=== PATIENT | male | born 1940 | race Caucasian/White ===

== ENCOUNTER 2016-06-30 15:45 | Emergency (ER) | payer MEDICARE ==
[~2016-06-30] VITALS: Ht 172.7 cm; Wt 76.0 kg
[~2016-06-30 15:45] MED LIST: COZA50TA PO; DILT180C56 PO; IPRA17I INH; KONS520C PO; MAXZ25 PO; VITA100017 PO; VITA10002 PO
[2016-06-30 15:58] VITALS: BP 145/84; PULSE 94; RESP 16; TEMP 98.2; O2SAT 97
[2016-06-30] MEDS ORDERED: OMEP20TA PO (16:14)
[2016-06-30] MEDS ORDERED: CYAN100025 SL (16:14)
[2016-06-30] MEDS ORDERED: IPRA17I INH (16:14)
[2016-06-30] MEDS ORDERED: LOSA50TA PO (16:14)
[2016-06-30] MEDS ORDERED: META0.52 PO (16:14)
[2016-06-30] MEDS ORDERED: VITA10007 PO (16:14)
[2016-06-30] MEDS ORDERED: DILT180C56 PO (16:14)
--- NOTE | 2016-06-30 17:36 | PD ---
HPI Chief Complaint: Foreign Body Time Seen by Provider: 16:15 Travel History International Travel<30 days: No Contact w/Intl Traveler<30days: No Traveled to known affect area: No History of Present Illness HPI Patient is a 75-year-old male who presents emergency department for evaluation of right toe possible foreign body. Patient states that he was in the garden yesterday when a flood light broke and he thinks he has a piece of glass in his foot. His states that when she was trying to suspect his toe he had a lot of pain so she brought him in to be evaluated. PFSH Past Medical History Arthritis: Yes Asthma: Yes ( YOUTH/ RESOLVED) Anxiety: No Cancer: Yes (LEFT LUNG) Cardiovascular Problems: Yes (htn on meds) Chemotherapy: No Diminished Hearing: No Endocrine: No Gastrointestinal Disorders: No Genitourinary: No Hypertension: Yes Immune Disorder: No Implanted Vascular Access Dvce: No Musculoskeletal: Yes Neurologic: No Psychiatric: Yes (CLAUSTRAPHOBIA) Reproductive: No Respiratory: Yes Radiation Therapy: No Tetanus Vaccination: Unknown Past Surgical History Abdominal Surgery: Yes (RT ING. HERNIA REP.) Genitourinary Surgery: Yes (VASECTOMY) Oral Surgery: Yes (T & A) Pacemaker: No Social History Alcohol Use: Yes (OCCAS) Tobacco Use: No Substance Use: No Allergies-Medications (Allergen,Severity, Reaction): Coded Allergies: PEANUTS (Unverified Allergy, Severe, HIVES, 06/30/16) Shrimp (Unverified Allergy, Severe, HIVES, 06/30/16) Prednisone (Verified Allergy, Intermediate, rash on face/flushed, 06/30/16) Penicillin (Verified Allergy, Mild, 06/30/16) Uncoded Allergies: COLD TEMPERATURE (Adverse Reaction, Intermediate, RASH,HIVES, 06/30/16) PATIENT BREAKS OUT WHEN ANYTHING COLD IN PLACED ON HIM. ALSO GETS HIVES FROM COLD TEMPERATURES.. Reported Meds & Prescriptions Reported Meds & Active Scripts Active Reported Metamucil (Psyllium) 520 Mg Cap 1 Cap PO HS Losartan (Losartan Potassium) 50 Mg Tab 50 Mg PO DAILY Diltiazem CD 24 HR 180 Mg Caper 180 Mg PO DAILY B-12 (Cyanocobalamin) 1,000 Mcg Subl 1,000 Mcg SL DAILY Atrovent HFA 12.9 GM Inh (Ipratropium [place]) 17 Mcg/Act Aer 2 Puff INH TID Vitamin C (Ascorbic Acid) 1,000 Mg Tab 1,000 Mg PO DAILY Omeprazole 20 Mg Tab 20 Mg PO DAILY Review of Systems Except as stated in HPI: all other systems reviewed are Neg Musculoskeletal: Positive: Pain Physical Exam Narrative GENERAL: Well-nourished, well-developed patient. SKIN: Warm and dry. 2 mm abrasion noted to the plantar aspect of the right first toe pad. No erythema, induration, swelling noted. No obvious foreign body noted. HEAD: Normocephalic. EYES: No scleral icterus. No injection or drainage. NECK: Supple, trachea midline. No JVD or lymphadenopathy. CARDIOVASCULAR: Regular rate and rhythm without murmurs, gallops, or rubs. RESPIRATORY: Breath sounds equal bilaterally. No accessory muscle use. GASTROINTESTINAL: Abdomen soft, non-tender, nondistended. MUSCULOSKELETAL: No cyanosis, or edema. BACK: Nontender without obvious deformity. No CVA tenderness. Data Data Last Documented VS Vital Signs Date Time Temp Pulse Resp B/P Pulse Ox O2 Delivery O2 Flow Rate FiO2 06/30/16 15:58 98.2 94 16 145/84 97 Orders Toe (Min 2vws) (06/30/16 ) Tetanus/Diphtheria Tox Adult (Tetanus/Di (06/30/16 17:45) MDM Medical Decision Making Medical Screen Exam Complete: Yes Emergency Medical Condition: Yes Interpretation(s) Vital Signs Date Time Temp Pulse Resp B/P Pulse Ox O2 Delivery O2 Flow Rate FiO2 06/30/16 15:58 98.2 94 16 145/84 97 Differential Diagnosis Abrasion versus puncture wound versus retained foreign body versus other Narrative Course Patient is a 75-year-old male who presented for evaluation of possible foreign body to the right first toe. On exam it does not appear to be any retained foreign body. Less than 2 mm abrasion noted to the plantar aspect of the first toe. requesting imaging. Imaging ordered and pending. Patient states tetanus vaccine is up-to-date now. Imaging was negative for acute fracture or foreign body. Does show osteoarthritis. Patient was encouraged to keep the abrasion clean and dry, cover with a Band-Aid until well healed. He was educated on signs and symptoms of infection and need to return to emergency department for any new or worsening symptoms. Patient verbalized understanding of instructions. Patient is stable for discharge. Diagnosis Primary Impression: Abrasion of toe Qualified Code: S90.414A - Abrasion of toe, right, initial encounter Referrals: Primary Care Physician Patient Instructions: Abrasion (ED), General Instructions Additional Instructions: Follow-up with your primary doctor Return to emergency department for any new or worsening symptoms Keep abrasion clean and dry, cover with Band-Aid Med/Other Pt SpecificInfo: No Change to Meds Disposition: 01 DISCHARGE HOME Condition: Stable Kelly Rodriguez Jun 30, 2016 17:35
[2016-06-30] MEDS ORDERED: TETANUS/DIPHTHERIA TOXOID ADULT 0.5 ML VIAL IM ONE (17:45)
--- NOTE | 2016-06-30 17:56 | RADHPO ---
EXAM DATE/TIME: 06/30/2016 17:12 [facility] COMPARISON: No previous studies available for comparison. INDICATIONS : Puncture wound right big toe from glass MEDICAL HISTORY : Carcinoma, lung. SURGICAL HISTORY : None. ENCOUNTER: Initial ACUITY: 1 day PAIN SCORE: 10/10 LOCATION: Right toe FINDINGS: Examination of the first digit of the right foot demonstrates moderate osteoarthritis of the great to e. No radiopaque foreign body and no fracture or dislocation. CONCLUSION: 1. 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 No acute fracture or dislocation. Mike Danielle MD on June 30, 2016 at 17:52 Board Certified Radiologist. This report was verified electronically.
== END 2016-06-30 18:19 | disposition home or self-care (01) ==
LOC: PHEFT 15:45
DX: S90.414A Abrasion, right lesser toe(s), initial encounter (principal); J45.909 Unspecified asthma, uncomplicated; I10 Essential (primary) hypertension; W25.XXXA Contact with sharp glass, initial encounter; Y93.H2 Activity, gardening and landscaping; Y92.007 Garden or yard of unspecified non-institutional (private) residence as the place of occurrence of the external cause; Y99.8 Other external cause status
CPT/HCPCS: 73660; 99283

== ENCOUNTER → 2016-09-13 | Outpatient (CLI) | payer MEDICARE ==
[~2016-09-13] MED LIST changes: -COZA50TA PO; +CYAN100025 SL; -KONS520C PO; +LOSA50TA PO; -MAXZ25 PO; +META0.52 PO; +OMEP20TA PO; -VITA100017 PO; -VITA10002 PO; +VITA10007 PO
--- NOTE | 2016-09-13 11:54 | RADRPT ---
EXAM DATE/TIME: 09/13/2016 00:00 [facility] COMPARISON: No previous studies available for comparison. INDICATIONS : Dysphagia FLUORO TIME: 1.4 minutes IMAGE COUNT: 0 CONTRAST: Dose as prescribed by speech pathologist. MEDICAL HISTORY : None. SURGICAL HISTORY : None. ENCOUNTER: Initial ACUITY: 1 year PAIN SCORE: 0/10 LOCATION: Bilateral esophagus FINDINGS: A modified barium swallow was performed with speech pathology. Patient was given a variety of liquids to swallow. For a full detailed report, see report by the speech pathologist. CONCLUSION: Please refer to modified speech pathology report for complete discussion. Erick Rodríguez MD on September 13, 2016 at 11:52 Board Certified Radiologist. This report was verified electronically.
== END ==
LOC: HRAD 10:54
PROVIDERS: ATTEND Internal Medicine Gastroenterology
DX: R13.10 Dysphagia, unspecified (principal)
CPT/HCPCS: 74230; 92611; G8996; G8997; G8998

== ENCOUNTER 2017-07-05 20:14 | Inpatient (IN) | payer MEDICARE ==
[~2017-07-05] VITALS: Ht 172.7 cm; Wt 67.7 kg
[~2017-07-05 20:14] MED LIST changes: -OMEP20TA PO; +OMEP20TA93 PO
[2017-07-05 20:15] VITALS: BP 144/67; PULSE 92; RESP 20; TEMP 97.8; O2SAT 96
[2017-07-05] MEDS ORDERED: DILT240C44 PO (20:45)
[2017-07-05] MEDS ORDERED: TYLE325T PO (20:45)
[2017-07-05] MEDS ORDERED: VENTAER INH (20:45)
[2017-07-05] MEDS ORDERED: FURO1TAB62 PO (20:45)
[2017-07-05] MEDS ORDERED: SODIUM CHLORIDE 0.9% FLUSH 10 ML FLUSH IVF PRN (21:00)
--- NOTE | 2017-07-05 21:01 | PD ---
HPI Chief Complaint: Respiratory Symptoms Time Seen by Provider: 20:50 Travel History International Travel<30 days: No Contact w/Intl Traveler<30days: No Traveled to known affect area: No History of Present Illness HPI 76-year-old male presents to the emergency department by private transportation in the care of his family for evaluation of shortness of breath and persistent pneumonia. Patient has history of dysphagia and more recently has gone through 2 courses of oral antibiotic as an outpatient azithromycin and doxycycline for pneumonia. 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 Patient has had progressive dyspnea on exertion and orthopnea. Patient underwent CT noncontrast of the chest yesterday and today was called and notified that he still had a right-sided pneumonia and was encouraged by his primary care provider to come to the hospital for admission for failed outpatient pneumonia therapy and for evaluation of other causes of his shortness of breath. Son reports that they have a pulse oximeter at home and at rest resting semi-supine O2 saturations were 88% and with minimal exertion O2 saturation stayed 88%. Patient has never been on supplemental oxygen in the past. PFSH Past Medical History Narrative Medical Arthritis asthma dysphagia lung cancer malignant melanoma in situ COPD hypertension dyslipidemia chronic kidney disease stage III colonoscopy tonsillectomy herniorrhaphy vasectomy left lower lobectomy Arthritis: Yes Asthma: Yes ( YOUTH/ RESOLVED) Anxiety: No Cancer: Yes (LEFT LUNG) Cardiovascular Problems: Yes (HTN) Chemotherapy: No COPD: Yes Diminished Hearing: No Endocrine: No Gastrointestinal Disorders: No Genitourinary: No Hypertension: Yes Immune Disorder: No Implanted Vascular Access Dvce: No Medical other: Yes ("COLD URTICARIA" WHEN IN CONTACT WITH ANYTHING COLD OR COLD WEATHER--HIVES) Musculoskeletal: Yes Neurologic: No Psychiatric: Yes (CLAUSTRAPHOBIA) Reproductive: No Respiratory: Yes (COPD, Lung cancer with lobectomy of LLL, ) Radiation Therapy: No Tetanus Vaccination: < 5 Years Influenza Vaccination: Yes Past Surgical History Abdominal Surgery: Yes (RT ING. HERNIA REP.) Body Medical Devices: "RIVETS" L INGUINAL HERNIA -- SHOWS ON X-RAY Genitourinary Surgery: Yes (VASECTOMY) Joint Replacement: No Oral Surgery: Yes (T & A) Pacemaker: No Thoracic Surgery: Yes (LOBECTOMY LOWER L LOBE 2010) Other Surgery: Yes Social History Alcohol Use: Yes (OCCAS) Tobacco Use: No Substance Use: No Allergies-Medications (Allergen,Severity, Reaction): Coded Allergies: peanut (Unverified Allergy, Severe, HIVES, 01/08/17) shrimp (Unverified Allergy, Severe, HIVES, 01/08/17) prednisone (Unverified Allergy, Intermediate, rash on face/flushed, ) penicillin G (Unverified Allergy, Mild, 01/08/17) Uncoded Allergies: COLD TEMPERATURE (Adverse Reaction, Intermediate, RASH,HIVES, 06/30/16) PATIENT BREAKS OUT WHEN ANYTHING COLD IN PLACED ON HIM. ALSO GETS HIVES FROM COLD TEMPERATURES.. Reported Meds & Prescriptions Reported Meds & Active Scripts Active Reported Tylenol (Acetaminophen) 325 Mg Tab 325 Mg PO Q4H PRN Diltiazem CD 24 HR 240 Mg Caper 180 Mg PO DAILY Lasix (Furosemide) 20 Mg Tab 20 Mg PO DAILY Metamucil (Psyllium) 520 Mg Cap 1 Cap PO HS Losartan (Losartan Potassium) 50 Mg Tab 50 Mg PO DAILY B-12 (Cyanocobalamin) 1,000 Mcg Subl 1,000 Mcg SL DAILY Atrovent HFA 12.9 GM Inh (Ipratropium [place]) 17 Mcg/Act Aer 2 Puff INH TID Omeprazole 20 Mg Tab 20 Mg PO DAILY Review of Systems Except as stated in HPI: all other systems reviewed are Neg General / Constitutional: No: Fever, Chills HENT: No: Congestion Cardiovascular: Positive: Dyspnea on exertion, Edema (ankle pedal), No: Chest Pain or Discomfort Respiratory: Positive: Cough, Shortness of Breath Gastrointestinal: No: Nausea, Vomiting, Diarrhea, Abdominal Pain Genitourinary: No: Dysuria Musculoskeletal: Positive: Edema, No: Myalgias, Arthralgias Skin: No Rash Neurologic: No: Weakness Psychiatric: No: Anxiety Hematologic/Lymphatic: No: Lymph Node Enlargement Physical Exam Narrative GENERAL: Well-developed elderly male in no acute distress or respiratory distress. SKIN: Warm and dry. HEAD: Normocephalic. EYES: No scleral icterus. No injection or drainage. NECK: Supple, trachea midline. No JVD or lymphadenopathy. CARDIOVASCULAR: Regular rate and rhythm without murmurs, gallops, or rubs. RESPIRATORY: Breath sounds equal bilaterally except for a few crackles to left base and diminished right base. No accessory muscle use. GASTROINTESTINAL: Abdomen soft, non-tender, nondistended. MUSCULOSKELETAL: No cyanosis, right greater than left lower leg edema and bilateral pedal edema. BACK: Nontender without obvious deformity. No CVA tenderness. Data Data Last Documented VS Vital Signs Date Time Temp Pulse Resp B/P (MAP) Pulse Ox O2 Delivery O2 Flow Rate FiO2 07/05/17 23:12 87 120/63 (82) 98 Room Air 07/05/17 20:15 97.8 20 Orders Orders Complete Blood Count With Diff (07/05/17 20:50) Comprehensive Metabolic Panel (07/05/17 20:50) B-Type Natriuretic Peptide (07/05/17 20:50) Act Partial Throm Time (Ptt) (07/05/17 20:50) Prothrombin Time / Inr (Pt) (07/05/17 20:50) Magnesium (Mg) (07/05/17 20:50) Ckmb (Isoenzyme) Profile (07/05/17 20:50) Troponin I (07/05/17 20:50) Urinalysis - C+S If Indicated (07/05/17 20:50) Blood Culture (07/05/17 20:50) Iv Access Insert/Monitor (07/05/17 20:50) Electrocardiogram (07/05/17 20:50) Ecg Monitoring (07/05/17 20:50) Oximetry (07/05/17 20:50) Oxygen Administration (07/05/17 20:50) Chest, Single Ap (07/05/17 20:50) Sodium Chloride 0.9% Flush (Ns Flush) (07/05/17 21:00) CKMB (07/05/17 20:40) CKMB% (07/05/17 20:40) Furosemide Inj (Lasix Inj) (07/05/17 23:00) Aztreonam Inj (Azactam Inj) (07/05/17 23:00) Lactic Acid (07/05/17 22:54) Admit Order (Ed Use Only) (07/05/17 ) [employer] Roofer / Telemetry MICHAEL.Q8H (07/05/17 23:12) Activity Oob With Assistance (07/05/17 23:12) Notify Dr: Other (07/05/17 23:12) Labs Laboratory Tests Test 07/05/17 20:40 White Blood Count 10.2 TH/MM3 Red Blood Count 4.67 MIL/MM3 Hemoglobin 14.5 GM/DL Hematocrit 43.9 % Mean Corpuscular Volume 93.9 FL Mean Corpuscular Hemoglobin 31.0 PG Mean Corpuscular Hemoglobin Concent 33.1 % Red Cell Distribution Width 15.1 % Platelet Count 221 TH/MM3 Mean Platelet Volume 8.2 FL Neutrophils (%) (Auto) 75.6 % Lymphocytes (%) (Auto) 14.1 % Monocytes (%) (Auto) 9.1 % Eosinophils (%) (Auto) 0.8 % Basophils (%) (Auto) 0.4 % Neutrophils # (Auto) 7.7 TH/MM3 Lymphocytes # (Auto) 1.4 TH/MM3 Monocytes # (Auto) 0.9 TH/MM3 Eosinophils # (Auto) 0.1 TH/MM3 Basophils # (Auto) 0.0 TH/MM3 CBC Comment DIFF FINAL Differential Comment Prothrombin Time 11.7 SEC Prothromb Time International Ratio 1.2 RATIO Activated Partial Thromboplast Time 27.3 SEC Blood Urea Nitrogen 34 MG/DL Creatinine 1.63 MG/DL Random Glucose 72 MG/DL Total Protein 7.0 GM/DL Albumin 3.2 GM/DL Calcium Level 9.0 MG/DL Magnesium Level 2.1 MG/DL Alkaline Phosphatase 100 U/L Aspartate Amino Transf (AST/SGOT) 65 U/L Alanine Aminotransferase (ALT/SGPT) 48 U/L Total Bilirubin 0.9 MG/DL Sodium Level 139 MEQ/L Potassium Level 4.6 MEQ/L Chloride Level 103 MEQ/L Carbon Dioxide Level 26.8 MEQ/L Anion Gap 9 MEQ/L Estimat Glomerular Filtration Rate 41 ML/MIN Total Creatine Kinase 904 U/L Creatine Kinase MB 13.7 NG/ML Creatine Kinase MB % 1.5 % Troponin I 0.17 NG/ML B-Type Natriuretic Peptide 806 PG/ML MDM Medical Decision Making Medical Screen Exam Complete: Yes Emergency Medical Condition: Yes Medical Record Reviewed: Yes Interpretation(s) Last Impressions Chest X-Ray 07/05/172049 Signed Impressions: Service Date/Time: Wednesday, July 05, 2017 21:04 - CONCLUSION: There is infiltrate and effusion the right lower lung suggestive of pneumonia. Girish Bennett MD CBC & BMP Diagram 07/05/17 20:40 Total Protein 7.0, Albumin 3.2 L, Calcium Level 9.0, Magnesium Level 2.1, Alkaline Phosphatase 100, Aspartate Amino Transf (AST/SGOT) 65 H, Alanine Aminotransferase (ALT/SGPT) 48, Total Bilirubin 0.9 Vital Signs Date Time Temp Pulse Resp B/P (MAP) Pulse Ox O2 Delivery O2 Flow Rate FiO2 07/05/17 21:18 98 Room Air 07/05/17 21:12 97 Room Air 07/05/17 21:12 97 Room Air 07/05/17 20:15 97.8 92 20 144/67 (92) 96 Room Air Differential Diagnosis Dyspnea CHF pneumonia PE ACS TX Narrative Course Patient placed on director cardiac IV access obtained specimens collected and sent for resulting; medical record reviewed EKG shows accelerated junctional rhythm rate 88 with right bundle branch block no acute ST elevation Chest x-ray shows right lower lobe infiltrate effusion and vascular congestion Total white cell count is normal with metabolic panel showing renal insufficiency Diagnosis Primary Impression: Pneumonia Qualified Codes: J18.1 - Lobar pneumonia, unspecified organism Additional Impressions: Elevated troponin I level ROSALIE (acute kidney injury) CHF (congestive heart failure) Yamini Macias MD Jul 05, 2017 21:01
[2017-07-05 21:12] VITALS: O2SAT 97
--- NOTE | 2017-07-05 21:28 | RADRPT ---
EXAM DATE/TIME: 07/05/2017 21:04 [facility] COMPARISON: No previous studies available for comparison. INDICATIONS : Shortness of breath. MEDICAL HISTORY : Carcinoma, left lung. Pneumonia. SURGICAL HISTORY : Left lower Lobectomy. ENCOUNTER: Initial ACUITY: 4 - 6 days PAIN SCORE: 0/10 LOCATION: Bilateral chest FINDINGS: There is infiltrate and effusion in the right lower lung. There is some platelike atelectasis versus scarring in the left lung base. Otherwise the rest of the left lung is clear. The heart size is mildl y enlarged. No overt pulmonary edema. The bony structures are grossly intact. CONCLUSION: There is infiltrate and effusion the right lower lung suggestive of pneumonia. Girish Bennett MD on July 05, 2017 at 21:25 Board Certified Radiologist. This report was verified electronically.
[2017-07-05 21:31] LABS: AUTOMATED NEUTROPHIL # 7.7 TH/MM3 (1.8-7.7); BASOPHIL % 0.4 % (0.0-2.0); EOSINOPHIL # 0.1 TH/MM3 (0-0.4); EOSINOPHIL % 0.8 % (0.0-4.0); HEMATOCRIT 43.9 % (39.0-51.0); HEMOGLOBIN 14.5 GM/DL (13.0-17.0); LYMPH % 14.1 % (9.0-44.0); LYMPHOCYTE # 1.4 TH/MM3 (1.0-4.8); MEAN CELL VOLUME 93.9 FL (80.0-100.0); MEAN CORPUSCULAR HGB CONC 33.1 % (32.0-36.0); MEAN PLATELET VOLUME 8.2 FL (7.0-11.0); MONO % 9.1 % (0.0-8.0); MONOCYTE # 0.9 TH/MM3 (0-0.9); NEUT % 75.6 % (16.0-70.0); PLATELET COUNT 221 TH/MM3 (150-450); RED BLOOD COUNT 4.67 MIL/MM3 (4.50-5.90); RED CELL DISTRIBUTION WIDTH 15.1 % (11.6-17.2); WHITE BLOOD COUNT 10.2 TH/MM3 (4.0-11.0)
[2017-07-05 21:32] LABS: INTERNATIONAL NORMALIZED RATIO 1.2 RATIO; PROTHROMBIN TIME - PATIENT 11.7 SEC (9.8-11.6)
[2017-07-05 21:47] LABS: ALBUMIN 3.2 GM/DL (3.4-5.0); AST (GOT) 65 U/L (15-37); BICARBONATE 26.8 MEQ/L (21.0-32.0); BLOOD UREA NITROGEN 34 MG/DL (7-18); CHLORIDE 103 MEQ/L (98-107); CREATININE 1.63 MG/DL (0.60-1.30); GLOMERULAR FILTRATION RATE 41 ML/MIN (>89); GLUCOSE,RANDOM 72 MG/DL (74-106); MAGNESIUM 2.1 MG/DL (1.5-2.5); SODIUM (NA) 139 MEQ/L (136-145)
[2017-07-05 21:51] LABS: ALKALINE PHOSPHATASE 100 U/L (45-117); ALT (GPT) 48 U/L (12-78); TOTAL BILIRUBIN ADULT 0.9 MG/DL (0.2-1.0); TROPONIN I 0.17 NG/ML (0.02-0.05)
[2017-07-05] MEDS ORDERED: FUROSEMIDE 40 MG/4 ML VIAL IV PUSH ONE (23:00)
[2017-07-05] MEDS ORDERED: AZTREONAM INJ 2,000 MG in SODIUM CHLORIDE 0.9% INJ 100 ML IV ONE (23:00)
[2017-07-05 23:12] VITALS: BP 120/63; PULSE 87; O2SAT 98
[2017-07-05 23:30] LABS: BILIRUBIN, URINE NEG (NEG); BLOOD, URINE NEG (NEG); GLUCOSE,URINE NEG (NEG); KETONE, URINE NEG (NEG); MUCUS URINE FEW /lpf (OCC); NITRITE,URINE NEG (NEG); URINE COLOR YELLOW (YELLW/STRAW); URINE LEUKOCYTE ESTERASE NEG (NEG)
[2017-07-05] MEDS ORDERED: Vancomycin Consult Pharmacy 1 EA OTHER SCH (23:30)
[2017-07-06] VITALS (9 sets, daily range): BP systolic 110–131; BP diastolic 55–68; PULSE 88–96; RESP 16–18; TEMP 97.4–97.8; O2SAT 93–98
[2017-07-06] MEDS ORDERED: VANCOMYCIN INJ 1,750 MG in SODIUM CHLORID 0.9% 500 ML INJ 500 ML IV ONE (00:19)
[2017-07-06] MEDS: ENOXAPARIN SODIUM 40 MG/0.4 ML SYRINGE SQ SCH (00:20)
[2017-07-06] MEDS: AZTREONAM INJ 2,000 MG in SODIUM CHLORIDE 0.9% INJ 100 ML IV SCH ×2 (08:50→16:43)
[2017-07-06 08:54] LABS: AUTOMATED NEUTROPHIL # 4.5 TH/MM3 (1.8-7.7); BASOPHIL % 0.6 % (0.0-2.0); EOSINOPHIL # 0.1 TH/MM3 (0-0.4); EOSINOPHIL % 1.1 % (0.0-4.0); HEMATOCRIT 39.9 % (39.0-51.0); HEMOGLOBIN 13.5 GM/DL (13.0-17.0); LYMPH % 18.5 % (9.0-44.0); LYMPHOCYTE # 1.2 TH/MM3 (1.0-4.8); MEAN CELL VOLUME 93.2 FL (80.0-100.0); MEAN CORPUSCULAR HEMOGLOBIN 31.4 PG (27.0-34.0); MEAN CORPUSCULAR HGB CONC 33.7 % (32.0-36.0); MEAN PLATELET VOLUME 8.1 FL (7.0-11.0); MONO % 9.3 % (0.0-8.0); MONOCYTE # 0.6 TH/MM3 (0-0.9); NEUT % 70.5 % (16.0-70.0); PLATELET COUNT 189 TH/MM3 (150-450); RED BLOOD COUNT 4.28 MIL/MM3 (4.50-5.90); RED CELL DISTRIBUTION WIDTH 14.8 % (11.6-17.2); WHITE BLOOD COUNT 6.4 TH/MM3 (4.0-11.0)
[2017-07-06 09:11] LABS: BICARBONATE 27.5 MEQ/L (21.0-32.0); CALCIUM 8.7 MG/DL (8.5-10.1); CREATININE 1.5 MG/DL (0.60-1.30)
[2017-07-06 09:15] LABS: TROPONIN I 0.21 NG/ML (0.02-0.05)
--- NOTE | 2017-07-06 10:48 | HHI.HP ---
HPI Service [facility] Hospitalists Primary Care Physician Karley Garcia MD Admission Diagnosis possible pna Chief Complaint: possible pna Travel History International Travel<30 Days: No Contact w/Intl Traveler <30 Da: No Traveled to Known Affected Are: No History of Present Illness Pt is 76 yo with hx lung ca sp left lung resection, copd, chronic dysphagia. Pt says he has had swallowing problems for about 3 yrs and was evaluated in [place], follows with ST outpt, and even tried a TENS unit for a yr. Uses modified diet. has been fatigued and more sob. recently he reports to courses of abx to include most recently completing doxycycline this week for pneumonia. Pt has had more edema of legs and seen by cardiology in May who felt the heart was compensated and pt had echo and vasquez in 01/10. They suggested pulmonary eval. Seen by pcp. CT chest done 07/03 and showed right lung consolidation and mod right pleural effusion and small left effusion. At [place] for his dysphagia, pt had esophageal manometry showed incomplete lower esophageal sphincter relaxation and occasional areas of poor peristalsis. mod barium swallow showed moderate oropharyngeal dysphagia with penetration but no aspiration. These reports were in April and he had never had any evidence of aspiration at that time. Now pt seems to have some coughing here with eating his breakfast. Pt was given iv lasix in ED last night for edema which improved the swelling. lovell was placed. given iv abx as well. Review of Systems Other sob fatigue swelling of legs. Past Family Social History Past Medical History dysphagia. s/p tens unit x [address] yr[address] outpt lexiscan 01/10...negative for ischemia 2d echo 01/10..ef 60-65% ckd 4 gfr 21..cr 1.4-1.6 cad... copd. 2014 pft...old... hx pna gerd hx lung ca. s/p left lung resection. mediastinal ln htn hyperlipidemia OA Reported Medications Tylenol (Acetaminophen) 325 Mg Tab 325 Mg PO Q4H PRN Diltiazem CD 180 Mg PO DAILY Lasix (Furosemide) 20 Mg Tab 20 Mg PO DAILY Metamucil (Psyllium) 520 Mg Cap 1 Cap PO HS Losartan (Losartan Potassium) 50 Mg Tab 50 Mg PO DAILY B-12 (Cyanocobalamin) 1,000 Mcg Subl 1,000 Mcg SL DAILY Atrovent HFA 12.9 GM Inh (Ipratropium Mineral) 17 Mcg/Act Aer 2 Puff INH TID Omeprazole 20 Mg Tab 20 Mg PO DAILY Allergies: Coded Allergies: peanut (Unverified Allergy, Severe, HIVES, 01/08/17) shrimp (Unverified Allergy, Severe, HIVES, 01/08/17) prednisone (Unverified Allergy, Intermediate, rash on face/flushed, ) penicillin G (Unverified Allergy, Mild, 01/08/17) Uncoded Allergies: COLD TEMPERATURE (Adverse Reaction, Intermediate, RASH,HIVES, 06/30/16) PATIENT BREAKS OUT WHEN ANYTHING COLD IN PLACED ON HIM. ALSO GETS HIVES FROM COLD TEMPERATURES.. Family History nc Social History no etoh/tob Physical Exam Vital Signs heart reg lung basilar crackles abd s/nt ext no edema Vital Signs Date Time Temp Pulse Resp B/P (MAP) Pulse Ox O2 Delivery O2 Flow Rate FiO2 07/06/17 08:00 97.6 90 18 116/55 (75) 93 07/06/17 04:00 89 07/06/17 03:58 97.7 89 16 126/58 (80) 97 07/06/17 01:30 97.7 94 18 131/68 (89) 96 07/05/17 23:12 87 120/63 (82) 98 Room Air 07/05/17 21:18 98 Room Air 07/05/17 21:12 97 Room Air 07/05/17 21:12 97 Room Air 07/05/17 20:15 97.8 92 20 144/67 (92) 96 Room Air Laboratory Laboratory Tests Test 07/05/17 20:40 07/05/17 22:31 07/05/17 23:08 07/06/17 08:28 White Blood Count 10.2 6.4 Red Blood Count 4.67 4.28 Hemoglobin 14.5 13.5 Hematocrit 43.9 39.9 Mean Corpuscular Volume 93.9 93.2 Mean Corpuscular Hemoglobin 31.0 31.4 Mean Corpuscular Hemoglobin Concent 33.1 33.7 Red Cell Distribution Width 15.1 14.8 Platelet Count 221 189 Mean Platelet Volume 8.2 8.1 Neutrophils (%) (Auto) 75.6 70.5 Lymphocytes (%) (Auto) 14.1 18.5 Monocytes (%) (Auto) 9.1 9.3 Eosinophils (%) (Auto) 0.8 1.1 Basophils (%) (Auto) 0.4 0.6 Neutrophils # (Auto) 7.7 4.5 Lymphocytes # (Auto) 1.4 1.2 Monocytes # (Auto) 0.9 0.6 Eosinophils # (Auto) 0.1 0.1 Basophils # (Auto) 0.0 0.0 CBC Comment DIFF FINAL DIFF FINAL Differential Comment Prothrombin Time 11.7 Prothromb Time International Ratio 1.2 Activated Partial Thromboplast Time 27.3 Blood Urea Nitrogen 34 31 Creatinine 1.63 1.50 Random Glucose 72 75 Total Protein 7.0 Albumin 3.2 Calcium Level 9.0 8.7 Magnesium Level 2.1 Alkaline Phosphatase 100 Aspartate Amino Transf (AST/SGOT) 65 Alanine Aminotransferase (ALT/SGPT) 48 Total Bilirubin 0.9 Sodium Level 139 142 Potassium Level 4.6 4.1 Chloride Level 103 106 Carbon Dioxide Level 26.8 27.5 Anion Gap 9 9 Estimat Glomerular Filtration Rate 41 45 Total Creatine Kinase 904 674 Creatine Kinase MB 13.7 11.2 Creatine Kinase MB % 1.5 1.7 Troponin I 0.17 0.21 B-Type Natriuretic Peptide 806 1014 Urine Color YELLOW Urine Turbidity CLEAR Urine pH 6.0 Urine Specific [place] 1.011 Urine Protein TRACE Urine Glucose (UA) NEG Urine Ketones NEG Urine Occult Blood NEG Urine Nitrite NEG Urine Bilirubin NEG Urine Urobilinogen LESS THAN 2.0 Urine Leukocyte Esterase NEG Urine RBC LESS THAN 1 Urine WBC 1 Urine Mucus FEW Microscopic Urinalysis Comment CULT NOT INDICATED Lactic Acid Level 1.3 Date/Time Source Procedure Growth Status 07/05/17 20:55 Blood Peripheral Aerobic Blood Culture Pending Received 07/05/17 20:55 Blood Peripheral Anaerobic Blood Culture Pending Received Result Diagram: 07/06/1782707/06/17827 Caprini VTE Risk Assessment Caprini VTE Risk Assessment: Mod/High Risk (score >= 2) Caprini Risk Assessment Model Point Value = 1 Point Value = 2 Point Value = 3 Point Value = 5 Age 41-60 Minor surgery BMI > 25 kg/m2 Swollen legs Varicose veins or History of unexplained or recurrent spontaneous Oral contraceptives or hormone replacement Sepsis (< 1 month) Serious lung disease, including pneumonia (< 1 month) Abnormal pulmonary function Acute myocardial infarction Congestive heart failure (< 1 month) History of inflammatory bowel disease Medical patient at bed rest Age 61-74 Arthroscopic surgery Major open surgery (> 45 min) Laparoscopic surgery (> 45 min) Malignancy Confined to bed (> 72 hours) Immobilizing plaster cast Central venous access Age >= 75 History of VTE Family history of VTE Factor V Leiden Prothrombin [id number] Lupus anticoagulant Anticardiolipin antibodies Elevated serum homocysteine Heparin-induced thrombocytopenia Other congenital or acquired thrombophilia Stroke (< 1 month) Elective arthroplasty Hip, pelvis, or leg fracture Acute spinal cord injury (< 1 month) Prophylaxis Regimen Total Risk Factor Score Risk Level Prophylaxis Regimen 0-1 Low Early ambulation 2 Moderate Order ONE of the following: *Sequential Compression Device (SCD) *Heparin 5000 units SQ BID 3-4 Higher Order ONE of the following medications: *Heparin 5000 units SQ TID *Enoxaparin/Lovenox 40 mg SQ daily (WT < 150 kg, CrCl > 30 mL/min) *Enoxaparin/Lovenox 30 mg SQ daily (WT < 150 kg, CrCl > 10-29 mL/min) *Enoxaparin/Lovenox 30 mg SQ BID (WT < 150 kg, CrCl > 30 mL/min) AND/OR *Sequential Compression Device (SCD) 5 or more Highest Order ONE of the following medications: *Heparin 5000 units SQ TID (Preferred with Epidurals) *Enoxaparin/Lovenox 40 mg SQ daily (WT < 150 kg, CrCl > 30 mL/min) *Enoxaparin/Lovenox 30 mg SQ daily (WT < 150 kg, CrCl > 10-29 mL/min) *Enoxaparin/Lovenox 30 mg SQ BID (WT < 150 kg, CrCl > 30 mL/min) AND *Sequential Compression Device (SCD) Assessment and Plan Problem List: (1) Fluid overload ICD Codes: E87.70 - Fluid overload, unspecified Status: Acute Plan: 1. 76 yo presents with sob, leg edema, fatigue. has been on 2 courses of abx for apparent pna. CT chest 3 days ago right lung base consolidation with mod effusion and small effusion on left. More edema with nml LVF and no ischemia on vasquez in 01/10. Question new aspiration now despite none with chronic dysphagia will get [address] chest and consider thoracentesis if enough fluid. iv abx and iv diuretic given by ED. speech eval. mod diet as needed. dvt prophylaxis. (2) Pneumonia ICD Codes: J18.9 - Pneumonia, unspecified organism Status: Acute (3) Dysphagia ICD Codes: R13.10 - Dysphagia, unspecified Status: Chronic (4) Lung cancer ICD Codes: C34.90 - Malignant neoplasm of unspecified part of unspecified bronchus or lung Status: Resolved (5) HTN (hypertension) ICD Codes: I10 - Essential (primary) hypertension Status: Chronic (6) CKD (chronic kidney disease) stage 4, GFR 15-29 ml/min ICD Codes: N18.4 - Chronic kidney disease, stage 4 (severe) Status: Chronic Physician Certification 2 Midnight Certification Type: Admission for Inpatient Services Order for Inpatient Services 3The services are ordered in accordance with Medicare regulations or non- Medicare payer requirements, as applicable. In the case of services not specified as inpatient-only, they are appropriately provided as inpatient services in accordance with the 2-midnight benchmark. Estimated LOS (days): 3 3 days is the estimated time the patient will need to remain in the hospital, assuming treatment plan goals are met and no additional complications. Post-Hospital Plan: Home Problem Qualifiers (1) Pneumonia: Qualified Codes: J18.1 - Lobar pneumonia, unspecified organism Raj Blank MD Jul 06, 2017 10:48
[2017-07-06] MEDS ORDERED: RESP: ALBUTEROL 2.5 MG/IPRATROPIUM 0.5 MG NEB (PRN) NEB (11:00)
--- NOTE | 2017-07-06 12:56 | ECHRPT ---
Indication: Possible chf CONCLUSIONS The left ventricular systolic function is low normal with an estimated ejection fraction in the rang e of 55- 60%. Normal left ventricular size. Severe concentric left ventricular hypertrophy. No regional wall motion abnormalities are present. Mitral annular calcification is present. Diffuse calcification of the aortic valve. Mild aortic valve regurgitation. There is trace tricuspid valve regurgitation. The estimated pulmonary arterial pressure is 30.1 mmHg. BP: 126 / 58 HR: 80 Rhythm: MEASUREMENTS (Male / Female) Normal Values Technical Quality:Fair 2D ECHO LV Diastolic Diameter PLAX 3.2 cm 4.2 - 5.9 / 3.9 - 5.3 cm LV Systolic Diameter PLAX 2.3 cm IVS Diastolic Thickness 1.9 cm 0.6 - 1.0 / 0.6 - 0.9 cm LVPW Diastolic Thickness 1.8 cm 0.6 - 1.0 / 0.6 - 0.9 cm LV Relative Wall Thickness 1.1 RV Internal Dim ED PLAX 2.7 cm LVOT Diameter 1.8 cm LA Systolic Diameter LX 4.0 cm 3.0 - 4.0 / 2.7 - 3.8 cm LV Ejection Fraction MOD 4C 54.9 % LV Cardiac Index MOD 4C 1688.4 cm/minm LV Ejection Fraction 4C AL 59.0 % LV Cardiac Index 4C AL 1878.6 cm/minm M-MODE LV Diastolic Diameter MM 2.8 cm 4.2 - 5.9 / 3.9 - 5.3 cm LV Systolic Diameter MM 2.1 cm LV Ejection Fraction MM Teich 52.0 % LV Cardiac Index MM Teich 659.4 cm/minm IVS Diastolic Thickness MM 1.9 cm 0.6 - 1.0 / 0.6 - 0.9 cm LVPW Diastolic Thickness MM 1.9 cm 0.6 - 1.0 / 0.6 - 0.9 cm LV Relative Wall Thickness MM 1.3 0.24 - 0.42 / 0.22 - 0.42 LV Mass Index MM 117.4 g/m 49 - 115 / 43 - 95 g/m Aortic Root Diameter MM 2.5 cm LA Systolic Diameter MM 4.0 cm LA Ao Ratio MM 1.6 AV Cusp Separation MM 2.1 cm DOPPLER AV Peak Velocity 182.0 cm/s AV Peak Gradient 13.2 mmHg AI Peak Velocity 311.0 cm/s AI Peak Gradient 38.7 mmHg AI Pressure Half Time 579.0 ms LVOT Peak Velocity 121.0 cm/s LVOT Peak Gradient 5.9 mmHg AV Area Cont Eq pk 1.7 cm MV Area PHT 8.1 cm Mitral E Point Velocity 103.0 cm/s Mitral A Point Velocity 48.9 cm/s Mitral E to A Ratio 2.1 LV E' Lateral Velocity 5.5 cm/s Mitral E to LV E' Lateral Ratio 18.9 LV E' Septal Velocity 3.9 cm/s Mitral E to LV E' Septal Ratio 26.4 TR Peak Velocity 224.0 cm/s TR Peak Gradient 20.1 mmHg Right Atrial Pressure 10.0 mmHg Pulmonary Artery Systolic Pressu 30.1 mmHg Right Ventricular Systolic Press 30.1 mmHg PV Peak Velocity 109.0 cm/s PV Peak Gradient 4.8 mmHg FINDINGS LEFT VENTRICLE The left ventricular systolic function is low normal with an estimated ejection fraction in the rang e of 55- 60%. Normal left ventricular size. Severe concentric left ventricular hypertrophy. No regional wall motion abnormalities are present. RIGHT VENTRICLE Normal right ventricular size and systolic function. LEFT ATRIUM The left atrial size is normal. RIGHT ATRIUM The right atrial size is normal. ATRIAL SEPTUM Normal atrial septal thickness without atrial level shunting by limited color doppler interrogation. AORTA The aortic root and proximal ascending aorta are normal in size on limited imaging. MITRAL VALVE Structurally normal mitral valve. Mitral annular calcification is present. AORTIC VALVE Trileaflet aortic valve. Diffuse calcification of the aortic valve. Mild aortic valve regurgitation. TRICUSPID VALVE Structurally normal tricuspid valve. There is trace tricuspid valve regurgitation. The estimated pulmonary arterial pressure is 30.1 mmHg. PULMONARY VALVE No pulmonary valve regurgitation or stenosis. VESSELS The inferior vena cava is normal in size. PERICARDIUM No pericardial effusion. Anthony Storm MD (Electronically Signed) Final Date:06 July 2017 12:55
[2017-07-06] MEDS ORDERED: RESP: ALBUTEROL 2.5 MG/IPRATROPIUM 0.5 MG NEB (SCH) NEB (17:00)
[2017-07-06] MEDS: FUROSEMIDE 20 MG TAB PO SCH (17:19)
[2017-07-06] MEDS: RESP: IPRATROPIUM 0.5 MG/2.5 ML NEB NEB SCH (23:43)
--- NOTE | 2017-07-06 23:45 | EKG ---
Date Performed: 07/05/2017 Time Performed: 20:49:23 PTAGE: 76 years EKG: UNCERTAIN REGULAR RHYTHM RIGHT BUNDLE BRANCH BLOCK ABNORMAL ECG Compared to prior tracing, now with RBBB DOCTOR: Onofre Campbell Interpretating Date/Time 07/06/2017 23:44:18
[2017-07-07] VITALS (11 sets, daily range): BP systolic 96–130; BP diastolic 50–66; PULSE 90–102; RESP 16–18; TEMP 97.2–97.9; O2SAT 96–98
[2017-07-07] MEDS: RESP: LEVALBUTEROL HYDROCHLORIDE 1.25 MG/3 ML NEB (SCH) NEB ×4 (00:07→23:32)
[2017-07-07] MEDS: ENOXAPARIN SODIUM 40 MG/0.4 ML SYRINGE SQ SCH ×2 (00:29→23:01)
[2017-07-07] MEDS: AZTREONAM INJ 2,000 MG in SODIUM CHLORIDE 0.9% INJ 100 ML IV SCH (00:29)
[2017-07-07] MEDS: PANTOPRAZOLE SOD 20 MG DELAYED RELEASE TAB PO SCH (08:28)
[2017-07-07] MEDS: FUROSEMIDE 20 MG TAB PO SCH (08:28)
--- NOTE | 2017-07-07 08:58 | RADRPT ---
EXAM DATE/TIME: 07/07/2017 08:46 [facility] COMPARISON: CHEST SINGLE AP, July 05, 2017, 21:04. INDICATIONS : Shortness of breath. RADIATION DOSE: 9.07 CTDIvol (mGy) MEDICAL HISTORY : Carcinoma, lung. SURGICAL HISTORY : Lobectomy. Inguinal hernia repair. ENCOUNTER: Initial ACUITY: 1 day PAIN SCALE: 0/10 LOCATION: Bilateral chest TECHNIQUE: Volumetric scanning of the chest was performed. Using automated exposure control and adjustment of t he mA and/or kV according to patient size, radiation dose was kept as low as reasonably achievable to obtain optimal diagnostic quality images. DICOM format image data is available electronically for r eview and comparison. Follow-up recommendations for detected pulmonary nodules are based at a minimum on nodule size and pa tient risk factors according to Fleischner Society Guidelines. FINDINGS: LUNGS: There is a small moderate sized right-sided pleural effusion and a small left-sided pleural effusion. There is compressive atelectasis of the right lower lobe. Mild compressive atelectasis is seen withi n the left lower lobe. There is prominence of the pulmonary vasculature consistent with cephalization of vessels. Scattered areas of paraseptal emphysematous changes are seen within the right hemithorax . PLEURAE: Small moderate sized right-sided pleural effusion and small left-sided pleural effusion. MEDIASTINUM: The heart size is mildly enlarged and there is severe coronary artery disease present. Scattered athe rosclerosis is seen throughout the aortic arch and abdominal aorta. No evidence of adenopathy. AXILLAE: Within normal limits. No lymphadenopathy. MUSCULOSKELETAL: Within normal limits for patient age. MISCELLANEOUS: The visualized upper abdominal organs demonstrate no acute abnormality. CONCLUSION: Bilateral pleural effusions, larger on the right. This is associated with compressive atelectasis of the right lower lobe. Enlargement of the cardiac silhouette and cephalization of pulmonary vasculatur e suggest congestive heart failure as the source of the pleural effusions.. Ely Davis MD on July 07, 2017 at 8:51 Board Certified Radiologist. This report was verified electronically.
[2017-07-07] MEDS ORDERED: LOSARTAN 50 MG TAB PO SCH (09:00)
--- NOTE | 2017-07-07 09:15 | HHI.PR ---
Subjective Remarks pt feels ok. in chair son confirms more sob with exertion and hypoxia with lying flat at night. he also believes pt aspirating Objective Vitals heart reg lung basilar crackles. abd s/nt ext no edema Vital Signs Date Time Temp Pulse Resp B/P (MAP) Pulse Ox O2 Delivery O2 Flow Rate FiO2 07/07/17 08:00 97.2 91 18 115/64 (81) 96 07/07/17 04:00 Room Air 07/07/17 04:00 97.4 93 16 109/66 (80) 97 07/07/17 03:44 90 07/07/17 00:00 97.8 94 16 100/61 (74) 96 07/07/17 00:00 98 Nasal Cannula 2.00 07/07/17 00:00 Nasal Cannula 2.00 07/06/17 23:42 93 07/06/17 20:00 Room Air 07/06/17 20:00 97.6 93 18 110/59 (76) 98 07/06/17 19:43 93 07/06/17 16:00 97.8 89 18 124/60 (81) 96 07/06/17 16:00 90 07/06/17 12:00 94 07/06/17 12:00 97.4 96 18 115/65 (82) 97 Result Diagram: 07/06/1782707/06/17 08 A/P Problem List: (1) Fluid overload ICD Codes: E87.70 - Fluid overload, unspecified Status: Acute Plan: 1. 76 yo presents with sob, leg edema, fatigue. has been on 2 courses of abx for apparent pna. CT chest 3 days ago right lung base consolidation with mod effusion and small effusion on left. More edema with nml LVF and no ischemia on vasquez in 01/10. Question new aspiration now despite none with chronic dysphagia will get 2 d echo to eval for chf speech eval noted confirmed concerns of aspiration. mod diet eval ct chest and pt/son agree with thoracentesis if enough fluid stop iv abx. no fever. nml wbc. cont diuretic and monitor renal function. dvt prophylaxis. (2) Pneumonia ICD Codes: J18.9 - Pneumonia, unspecified organism Status: Acute (3) Dysphagia ICD Codes: R13.10 - Dysphagia, unspecified Status: Chronic (4) Lung cancer ICD Codes: C34.90 - Malignant neoplasm of unspecified part of unspecified bronchus or lung Status: Resolved (5) HTN (hypertension) ICD Codes: I10 - Essential (primary) hypertension Status: Chronic (6) CKD (chronic kidney disease) stage 4, GFR 15-29 ml/min ICD Codes: N18.4 - Chronic kidney disease, stage 4 (severe) Status: Chronic Problem Qualifiers (1) Pneumonia: Qualified Codes: J18.1 - Lobar pneumonia, unspecified organism Raj Blank MD Jul 07, 2017 09:15
--- NOTE | 2017-07-07 09:24 | EKG ---
Date Performed: 07/06/2017 Time Performed: 07:29:33 PTAGE: 76 years EKG: Sinus rhythm WITH FIRST DEGREE AV BLOCK MARKED RIGHT AXIS DEVIATION RIGHT BUNDLE BRANCH BLOCK ABNORMAL ECG PREVIOUS TRACING : 07/05/2017 20.49 Since the prior tracing, there has been no significant almeida DOCTOR: Onofre Campbell Interpretating Date/Time 07/07/2017 09:23:31
[2017-07-07 09:34] LABS: BICARBONATE 27.7 MEQ/L (21.0-32.0); CALCIUM 8.8 MG/DL (8.5-10.1); CREATININE 1.69 MG/DL (0.60-1.30)
[2017-07-07 09:37] LABS: RANDOM VANCOMYCIN 11.6 COMMENT
[2017-07-07] MEDS: RESP: IPRATROPIUM 0.5 MG/2.5 ML NEB NEB SCH ×3 (10:10→23:32)
[2017-07-07] MEDS ORDERED: VANCOMYCIN INJ 1,250 MG in SODIUM CHLOR 0.9% 250 ML INJ 250 ML IV ONE (13:00)
[2017-07-07] MEDS: FUROSEMIDE 20 MG/2 ML VIAL IV PUSH SCH (17:28)
[2017-07-07] MEDS: TEMAZEPAM 7.5 MG CAP PO PRN (23:01)
[2017-07-08] VITALS (14 sets, daily range): BP systolic 93–112; BP diastolic 52–62; PULSE 86–103; RESP 16–20; TEMP 97.5–98.5; O2SAT 81–100
[2017-07-08 07:14] LABS: INTERNATIONAL NORMALIZED RATIO 1.2 RATIO; PROTHROMBIN TIME - PATIENT 12.2 SEC (9.8-11.6)
[2017-07-08 07:29] LABS: ALBUMIN 2.7 GM/DL (3.4-5.0); BICARBONATE 27.4 MEQ/L (21.0-32.0); CALCIUM 8.4 MG/DL (8.5-10.1); CREATININE 1.53 MG/DL (0.60-1.30); DIRECT BILIRUBIN ADULT 0.2 MG/DL (0.0-0.2)
[2017-07-08 07:32] LABS: INDIRECT BILIRUBIN 0.5 MG/DL (0.0-0.8); TOTAL BILIRUBIN ADULT 0.7 MG/DL (0.2-1.0); TOTAL PROTEIN 6.2 GM/DL (6.4-8.2)
[2017-07-08] MEDS: RESP: IPRATROPIUM 0.5 MG/2.5 ML NEB NEB SCH ×3 (07:36→23:39)
[2017-07-08] MEDS: RESP: LEVALBUTEROL HYDROCHLORIDE 1.25 MG/3 ML NEB (SCH) NEB ×3 (07:36→23:39)
[2017-07-08] MEDS: PANTOPRAZOLE SOD 20 MG DELAYED RELEASE TAB PO SCH (08:26)
[2017-07-08] MEDS: FUROSEMIDE 20 MG/2 ML VIAL IV PUSH SCH ×3 (08:28→18:10)
[2017-07-08] MEDS ORDERED: LIDOCAINE HCL 1% 20 ML VIAL ONE (14:52)
--- NOTE | 2017-07-08 15:05 | RADRPT ---
EXAM DATE/TIME: 07/08/2017 14:34 [facility] COMPARISON: CHEST SINGLE AP, July 05, 2017, 21:04. INDICATIONS : Post right thoracentesis. MEDICAL HISTORY : Carcinoma, lung. SURGICAL HISTORY : Inguinal hernia repair. Lobectomy. ENCOUNTER: Initial ACUITY: 1 day PAIN SCORE: 0/10 LOCATION: Bilateral chest FINDINGS: A single frontal expiratory view of the chest was performed. Minimal bibasilar atelectatic changes. P revious right-sided fusion has resolved post thoracentesis. There may be a small amount of fluid in t he costophrenic angle. No pneumothorax. Heart size is prominent with a compensated. Atherosclerotic calcification of the aortic arch. Degener ative spurring of the dorsal spine. CONCLUSION: 1. Marked improvement in the previously seen right-sided effusion. Minimal fluid persists in the cost ophrenic angle. No pneumothorax post thoracentesis. 2. Mild bibasilar atelectatic changes. 3. Compensated cardiomegaly. Theo Lazo MD on July 08, 2017 at 15:00 Board Certified Radiologist. This report was verified electronically.
[2017-07-08 16:27] LABS: TOTAL PROTEIN,PLEURAL FLUID 1.9 GM/DL
--- NOTE | 2017-07-08 16:49 | RADRPT ---
EXAM DATE/TIME: 07/08/2017 13:34 [facility] COMPARISON: No previous studies available for comparison. EXTERNAL COMPARISON: [facility]. CT Chest, Jul 03 2017, and 06/18/16 INDICATIONS : Right pleural effusion. MEDICAL HISTORY : Myocardial infarction. Chronic obstructive pulmonary disease. Hypertension. Lung cancer. SURGICAL HISTORY : Left lower lobe lobectomy. Right inguinal hernia. ENCOUNTER: Subsequent ACUITY: 2 days PAIN SCORE: 1/10 LOCATION: Right chest FLUID: Total volume of 800 cc of clear, yellow fluid was removed. Fluid was sent to lab for ordered studies. TECHNIQUE: 1. Ultrasound guidance for thoracentesis. 2. Thoracentesis. The risks, benefits, and alternatives to ultrasound guided thoracentesis were explained to the patien t in lay simple terms, including the risk of bleeding and infection. Written and verbal informed con sent was obtained. Appropriate area for thoracentesis was marked under ultrasound guidance with the patient in the uprig ht position. Overlying skin was prepped and draped in the usual sterile fashion and with local anest hetic, a dermatotomy was made with an 11 blade scalpel. A 6 [place] thoracentesis catheter was placed in the pleural space and fluid was removed. Catheter was then removed and a sterile dressing applie d. There were no immediate complications. The patient tolerated the procedure well and the left the ultrasound suite in stable condition. Chest radiograph is to be obtained. CONCLUSION: Uncomplicated ultrasound guided thoracentesis. Antoni Marrero MD on July 08, 2017 at 16:46 Board Certified Radiologist. This report was verified electronically.
[2017-07-08 17:44] LABS: PLEURAL FLUID LYMPHS 0 %; PLEURAL FLUID POLYS (SEGS) 0 %; PLEURAL FLUID RBC 105 /MM3 (0-0); PLEURAL FLUID WBC 0 /MM3 (0-10)
--- NOTE | 2017-07-08 17:50 | HHI.PR ---
Subjective Remarks No new complaints. Objective Vitals Vital Signs Date Time Temp Pulse Resp B/P (MAP) Pulse Ox O2 Delivery O2 Flow Rate FiO2 07/08/17 16:51 99 07/08/17 16:00 97.9 101 20 107/62 (77) 98 07/08/17 12:35 103 07/08/17 12:00 97.9 102 20 102/53 (69) 98 07/08/17 08:00 97.8 99 20 112/56 (74) 100 07/08/17 08:00 90 07/08/17 07:40 Nasal Cannula 2.00 07/08/17 07:39 99 Nasal Cannula 2.00 07/08/17 07:39 81 Room Air 21 07/08/17 07:00 Room Air 07/08/17 04:00 97.6 90 19 112/58 (76) 97 07/08/17 04:00 Room Air 07/08/17 03:50 87 07/08/17 02:59 95 Nasal Cannula 2.00 07/08/17 00:00 Room Air 07/08/17 00:00 97.5 92 20 99/56 (70) 97 07/07/17 23:45 90 07/07/17 23:34 97 Nasal Cannula 2.00 07/07/17 20:00 Room Air 07/07/17 20:00 97.9 100 18 96/57 (70) 96 07/07/17 19:43 102 07/08/17 07/08/17 07/09/17 15:00 23:00 07:00 Output Total 550 ml Balance -550 ml Output Urine Total 550 ml # Bowel Movements 1 Result Diagram: 07/06/17 0828 07/08/17 0545 Imaging Last Impressions Thoracentesis Ultrasound 07/08/17 0600 Signed Impressions: Service Date/Time: Saturday, July 08, 2017 13:34 - CONCLUSION: Uncomplicated ultrasound guided thoracentesis. Antoni Marrero MD Chest X-Ray 07/08/17 0000 Signed Impressions: Service Date/Time: Saturday, July 08, 2017 14:34 - CONCLUSION: 1. Marked improvement in the previously seen right-sided effusion. Minimal fluid persists in the costophrenic angle. No pneumothorax post thoracentesis. 2. Mild bibasilar atelectatic changes. 3. Compensated cardiomegaly. Theo Lazo MD Chest CT 07/06/17 0000 Signed Impressions: Service Date/Time: Friday, July 07, 2017 08:46 - CONCLUSION: Bilateral pleural effusions, larger on the right. This is associated with compressive atelectasis of the right lower lobe. Enlargement of the cardiac silhouette and cephalization of pulmonary vasculature suggest congestive heart failure as the source of the pleural effusions.. Ely Davis MD Objective Remarks GENERAL: This is a well-nourished, well-developed patient, in no apparent distress. CARDIOVASCULAR: Regular rate and rhythm without murmurs, gallops, or rubs. RESPIRATORY: Clear to auscultation. Breath sounds equal bilaterally. No wheezes , rales, or rhonchi. GASTROINTESTINAL: Abdomen soft, non-tender, nondistended. Normal active bowel sounds MUSCULOSKELETAL: Extremities without clubbing, cyanosis, or edema. NEURO: Alert & Oriented x4 to person, place, time, situation. Moves all ext x4 A/P Problem List: (1) Fluid overload ICD Codes: E87.70 - Fluid overload, unspecified Status: Acute Plan: - 76 yo presents with sob, leg edema, fatigue. has been on 2 courses of abx for apparent pna. - CT chest 3 days prior to admission showed right lung base consolidation with mod effusion and small effusion on left. - vasquez 01/10 --> no ischemia - echocardiogram (07/08) - EF 55-60% - severe LVH - Will discuss echocardiogram further with Cardiology 07/09 - speech eval noted confirmed concerns of aspiration. mod diet - Pt underwent right thoracentesis (07/08) with removal of 800ml fluid, studies sent to the lab - antibiotics stopped - cont diuretic if BP will allow and monitor renal function. dvt prophylaxis. (2) Pneumonia ICD Codes: J18.9 - Pneumonia, unspecified organism Status: Acute Plan: - pneumonia seems less likely - no fever, no leukocytosis - antibiotics stopped - observe (3) Dysphagia ICD Codes: R13.10 - Dysphagia, unspecified Status: Chronic Plan: - see above (4) Lung cancer ICD Codes: C34.90 - Malignant neoplasm of unspecified part of unspecified bronchus or lung Status: Resolved Plan: - previous h/o lung ca - s/p left lung resection (5) HTN (hypertension) ICD Codes: I10 - Essential (primary) hypertension Status: Chronic Plan: - pt trending hypotensive - outpt BP meds are on hold - observe (6) CKD (chronic kidney disease) stage 4, GFR 15-29 ml/min ICD Codes: N18.4 - Chronic kidney disease, stage 4 (severe) Status: Chronic Problem Qualifiers (1) Pneumonia: Qualified Codes: J18.1 - Lobar pneumonia, unspecified organism (2) Dysphagia: Qualified Codes: R13.10 - Dysphagia, unspecified (3) Lung cancer: Qualified Codes: C34.90 - Malignant neoplasm of unspecified part of unspecified bronchus or lung (4) HTN (hypertension): Qualified Codes: I10 - Essential (primary) hypertension Benjamin Bond DO Jul 08, 2017 17:50
[2017-07-08] MEDS: TEMAZEPAM 7.5 MG CAP PO PRN (20:38)
[2017-07-09] VITALS (13 sets, daily range): BP systolic 96–119; BP diastolic 51–76; PULSE 85–105; RESP 16–20; TEMP 97.3–99; O2SAT 94–98
[2017-07-09] MEDS: ENOXAPARIN SODIUM 40 MG/0.4 ML SYRINGE SQ SCH ×2 (00:09→23:17)
[2017-07-09 03:43] LABS: BILIRUBIN, URINE NEG (NEG); BLOOD, URINE MOD (NEG); GLUCOSE,URINE NEG (NEG); HYALINE CAST, URINE 1 /lpf (RARE); KETONE, URINE NEG (NEG); MUCUS URINE FEW /lpf (OCC); NITRITE,URINE NEG (NEG); PH, URINE 5.5 (5.0-8.5); SQUAMOUS EPITHELIAL CELL URINE <1 /hpf (0-5); URINE COLOR YELLOW (YELLW/STRAW); URINE LEUKOCYTE ESTERASE NEG (NEG)
[2017-07-09] MEDS: RESP: LEVALBUTEROL HYDROCHLORIDE 1.25 MG/3 ML NEB (SCH) NEB ×3 (07:48→22:56)
[2017-07-09] MEDS: RESP: IPRATROPIUM 0.5 MG/2.5 ML NEB NEB SCH ×3 (07:48→22:56)
[2017-07-09] MEDS: PANTOPRAZOLE SOD 20 MG DELAYED RELEASE TAB PO SCH (08:14)
[2017-07-09] MEDS ORDERED: FUROSEMIDE 20 MG TAB PO SCH (09:00)
--- NOTE | 2017-07-09 15:32 | HHI.PR ---
Subjective Remarks No new complaints. Pt's SOB is improved from admission. Objective Vitals Vital Signs Date Time Temp Pulse Resp B/P (MAP) Pulse Ox O2 Delivery O2 Flow Rate FiO2 07/09/17 12:00 97.7 95 20 99/66 (77) 98 07/09/17 10:01 95 07/09/17 08:00 97.3 91 20 119/65 (83) 97 07/09/17 07:50 97 07/09/17 04:06 85 07/09/17 04:00 99.0 93 20 116/76 (89) 94 07/09/17 04:00 Nasal Cannula 2.00 07/09/17 00:14 96 07/09/17 00:00 98.3 96 19 103/51 (68) 95 07/09/17 00:00 Nasal Cannula 2.00 07/08/17 23:44 99 Nasal Cannula 2.00 07/08/17 20:00 Nasal Cannula 2.00 07/08/17 20:00 98.0 97 18 93/52 (66) 95 07/08/17 19:45 99 07/08/17 16:51 99 07/08/17 16:00 97.9 101 20 107/62 (77) 98 07/09/17 07/09/17 07/10/17 15:00 23:00 07:00 Bladder Scan Volume Amount 350 ml # Voids 1 # Bowel Movements 1 Result Diagram: 07/06/17 0828 07/08/17 0545 Imaging Last Impressions Thoracentesis Ultrasound 07/08/17 0600 Signed Impressions: Service Date/Time: Saturday, July 08, 2017 13:34 - CONCLUSION: Uncomplicated ultrasound guided thoracentesis. Antoni Marrero MD Chest X-Ray 07/08/17 0000 Signed Impressions: Service Date/Time: Saturday, July 08, 2017 14:34 - CONCLUSION: 1. Marked improvement in the previously seen right-sided effusion. Minimal fluid persists in the costophrenic angle. No pneumothorax post thoracentesis. 2. Mild bibasilar atelectatic changes. 3. Compensated cardiomegaly. Theo Lazo MD Chest CT 07/06/17 0000 Signed Impressions: Service Date/Time: Friday, July 07, 2017 08:46 - CONCLUSION: Bilateral pleural effusions, larger on the right. This is associated with compressive atelectasis of the right lower lobe. Enlargement of the cardiac silhouette and cephalization of pulmonary vasculature suggest congestive heart failure as the source of the pleural effusions.. Ely Davis MD Objective Remarks GENERAL: This is a well-nourished, well-developed patient, in no apparent distress. CARDIOVASCULAR: Regular rate and rhythm without murmurs, gallops, or rubs. RESPIRATORY: Clear to auscultation. Breath sounds equal bilaterally. No wheezes , rales, or rhonchi. GASTROINTESTINAL: Abdomen soft, non-tender, nondistended. Normal active bowel sounds MUSCULOSKELETAL: Extremities without clubbing, cyanosis, or edema. NEURO: Alert & Oriented x4 to person, place, time, situation. Moves all ext x4 A/P Problem List: (1) Fluid overload ICD Codes: E87.70 - Fluid overload, unspecified Status: Acute Plan: - 76 yo presents with sob, leg edema, fatigue. has been on 2 courses of abx for apparent pna. - CT chest 3 days prior to admission showed right lung base consolidation with mod effusion and small effusion on left. - vasquez 01/10 --> no ischemia - echocardiogram (07/08) - EF 55-60% - severe LVH - Will discuss echocardiogram further with Cardiology 07/09 - speech eval noted confirmed concerns of aspiration. mod diet - Pt underwent right thoracentesis (07/08) with removal of 800ml fluid, studies sent to the lab - awaiting studies, suspect transudative effusion - antibiotics stopped - cont diuretic if BP will allow and monitor renal function. dvt prophylaxis. - anticipate d/c to SNF in 1-2 days (2) Pneumonia ICD Codes: J18.9 - Pneumonia, unspecified organism Status: Acute Plan: - pneumonia seems less likely - no fever, no leukocytosis - antibiotics stopped - observe (3) Dysphagia ICD Codes: R13.10 - Dysphagia, unspecified Status: Chronic Plan: - see above (4) Lung cancer ICD Codes: C34.90 - Malignant neoplasm of unspecified part of unspecified bronchus or lung Status: Resolved Plan: - previous h/o lung ca - s/p left lung resection (5) HTN (hypertension) ICD Codes: I10 - Essential (primary) hypertension Status: Chronic Plan: - pt trending hypotensive - outpt BP meds are on hold - observe (6) CKD (chronic kidney disease) stage 4, GFR 15-29 ml/min ICD Codes: N18.4 - Chronic kidney disease, stage 4 (severe) Status: Chronic Problem Qualifiers (1) Pneumonia: Qualified Codes: J18.1 - Lobar pneumonia, unspecified organism (2) Dysphagia: Qualified Codes: R13.10 - Dysphagia, unspecified (3) Lung cancer: Qualified Codes: C34.90 - Malignant neoplasm of unspecified part of unspecified bronchus or lung (4) HTN (hypertension): Qualified Codes: I10 - Essential (primary) hypertension Benjamin Bond DO Jul 09, 2017 15:32
[2017-07-09] MEDS: TAMSULOSIN HCL 0.4 MG CAP PO SCH (18:03)
[2017-07-09 22:58] LABS: TOTAL PROTEIN 6.5 GM/DL (6.4-8.2)
[2017-07-09] MEDS: TEMAZEPAM 7.5 MG CAP PO PRN (23:17)
[2017-07-10] VITALS (11 sets, daily range): BP systolic 91–111; BP diastolic 50–79; PULSE 91–103; RESP 16–18; TEMP 98–98.3; O2SAT 95–99
[2017-07-10] MEDS: RESP: IPRATROPIUM 0.5 MG/2.5 ML NEB NEB SCH ×3 (07:39→23:05)
[2017-07-10] MEDS: RESP: LEVALBUTEROL HYDROCHLORIDE 1.25 MG/3 ML NEB (SCH) NEB ×3 (07:39→23:06)
--- NOTE | 2017-07-10 07:39 | PD.CONS ---
HPI Consult Requested By Primary Care Physician Karley Garcia MD History of Present Illness 76-year-old male with a past medical history of lung cancer status post left lung resection, COPD, chronic dysphagia/GERD, CKD, HTN who presented for shortness of breath. The patient reports that since his admission his breathing is much improved. He has been receiving diuretics and reports good urine output. He also had thoracentesis 07/08 for right pleural effusion, reports breathing significantly improved after that. He denies any chest pain or palpitations. He's been having some swelling in his right leg, which is improving. He denies any prior history of heart disease. He had an echocardiogram which showed normal EF with severe concentric left ventricular hypertrophy, and is for this that we're consulted. BP has been borderline hypotensive off home BP meds. (Darnell Baker) Review of Systems Negative except as stated in history of present illness (Darnell Baker) Past Family Social History Allergies: Coded Allergies: peanut (Unverified Allergy, Severe, HIVES, 01/08/17) shrimp (Unverified Allergy, Severe, HIVES, 01/08/17) prednisone (Unverified Allergy, Intermediate, rash on face/flushed, ) penicillin G (Unverified Allergy, Mild, 01/08/17) Uncoded Allergies: COLD TEMPERATURE (Adverse Reaction, Intermediate, RASH,HIVES, 06/30/16) PATIENT BREAKS OUT WHEN ANYTHING COLD IN PLACED ON HIM. ALSO GETS HIVES FROM COLD TEMPERATURES.. Past Medical History dysphagia. s/p tens unit x [address] yr[address] outpt lexiscan 01/10...negative for ischemia 2d echo 01/10..ef 60-65% ckd 4 gfr 21..cr 1.4-1.6 copd. 2014 pft...old... hx pna gerd hx lung ca. s/p left lung resection. mediastinal ln htn OA Reported Medications Reported Meds & Active Scripts Active Reported Tylenol (Acetaminophen) 325 Mg Tab 325 Mg PO Q4H PRN Diltiazem CD 24 HR 240 Mg Caper 180 Mg PO DAILY Lasix (Furosemide) 20 Mg Tab 20 Mg PO DAILY Metamucil (Psyllium) 520 Mg Cap 1 Cap PO HS Losartan (Losartan Potassium) 50 Mg Tab 50 Mg PO DAILY B-12 (Cyanocobalamin) 1,000 Mcg Subl 1,000 Mcg SL DAILY Atrovent HFA 12.9 GM Inh (Ipratropium [place]) 17 Mcg/Act Aer 2 Puff INH TID Omeprazole 20 Mg Tab 20 Mg PO DAILY Active Ordered Medications Current Medications Medications (Trade) Dose Ordered Sig/Teddy Route Start Time Stop Time Status Last Admin (NS Flush) 2 ml UNSCH PRN IVF 07/05/17 21:00 07/09/17 20:35 (Lovenox Inj) 40 mg Q24H SQ 07/06/17 00:00 07/09/17 23:17 (Protonix) 20 mg DAILY PO 07/07/17 09:00 07/09/17 08:14 (Atrovent Neb) 0.5 mg Q8HR NEB NEB 07/07/17 00:00 07/09/17 22:56 (Xopenex Neb) 1.25 mg Q8HR NEB NEB 07/07/17 00:00 07/09/17 22:56 (Restoril) 7.5 mg HS PRN PO 07/07/17 13:00 07/09/17 23:17 (Lasix) 20 mg DAILY PO 07/10/17 09:00 (Flomax) 0.4 mg DAILY PO 07/09/17 16:00 07/09/17 18:03 Family History Noncontributory Social History no etoh/tob (Darnell Baker) Physical Exam Vital Signs Vital Signs Date Time Temp Pulse Resp B/P (MAP) Pulse Ox O2 Delivery O2 Flow Rate FiO2 07/10/17 04:08 94 07/10/17 04:00 98.2 93 16 91/50 (64) 96 07/10/17 04:00 Room Air 07/10/17 00:00 Room Air 07/10/17 00:00 98.0 103 16 101/54 (70) 95 07/09/17 23:59 103 07/09/17 22:57 97 07/09/17 22:57 97 07/09/17 20:05 101 07/09/17 20:00 98.4 105 16 96/53 (67) 97 07/09/17 19:45 Room Air 07/09/17 16:00 98.5 96 20 116/58 (77) 98 07/09/17 12:00 97.7 95 20 99/66 (77) 98 07/09/17 10:01 95 07/09/17 08:00 95 Room Air 21 07/09/17 08:00 97.3 91 20 119/65 (83) 97 07/09/17 07:50 97 Physical Exam GENERAL: Well-developed well-nourished. In no acute distress. NECK: No carotid bruits. No JVD. CARDIOVASCULAR: Regular rate and rhythm. +gallop. RESPIRATORY: No accessory muscle use. Clear to auscultation. Breath sounds diminished in the bases. No crackles. MUSCULOSKELETAL: No clubbing or cyanosis. 1+ edema on the right. NEUROLOGICAL: Awake and alert. Normal speech. Laboratory Laboratory Tests Test 07/09/17 21:37 Lactate Dehydrogenase 291 B-Type Natriuretic Peptide 1032 Total Protein 6.5 Date/Time Source Procedure Growth Status 07/05/17 20:55 Blood Peripheral Aerobic Blood Culture - Preliminary NO GROWTH IN 4 DAYS Resulted 07/05/17 20:55 Blood Peripheral Anaerobic Blood Culture - Preliminary NO GROWTH IN 4 DAYS Resulted 07/08/17 14:20 Fluid Pleural Fluid Gram Stain - Final Resulted 07/08/17 14:20 Fluid Pleural Fluid Body Fluid Culture - Preliminary NO GROWTH IN 24 HOURS. Resulted (Darnell Baker) Result Diagram: 07/06/17 0828 07/08/17 0545 Imaging Last Impressions Thoracentesis Ultrasound 07/08/17 0600 Signed Impressions: Service Date/Time: Saturday, July 08, 2017 13:34 - CONCLUSION: Uncomplicated ultrasound guided thoracentesis. Antoni Marrero MD Chest X-Ray 07/08/17 0000 Signed Impressions: Service Date/Time: Saturday, July 08, 2017 14:34 - CONCLUSION: 1. Marked improvement in the previously seen right-sided effusion. Minimal fluid persists in the costophrenic angle. No pneumothorax post thoracentesis. 2. Mild bibasilar atelectatic changes. 3. Compensated cardiomegaly. Theo Lazo MD Chest CT 07/06/17 0000 Signed Impressions: Service Date/Time: Friday, July 07, 2017 08:46 - CONCLUSION: Bilateral pleural effusions, larger on the right. This is associated with compressive atelectasis of the right lower lobe. Enlargement of the cardiac silhouette and cephalization of pulmonary vasculature suggest congestive heart failure as the source of the pleural effusions.. Ely Davis MD (Darnell Baker) Assessment and Plan Assessment and Plan 76-year-old male with a past medical history of lung cancer status post left lung resection, COPD, chronic dysphagia/GERD, CKD, HTN who presented for shortness of breath. He has had thoracentesis 07/08 for right pleural effusion. He had an echocardiogram which showed normal EF with severe concentric left ventricular hypertrophy. Shortness of breath: Has been diuresing well throughout admission and symptoms seem to improve with diuresis and thoracentesis. Echocardiogram suggests possibly contributing component of diastolic heart failure. His underlying COPD may be contributing as well. (Darnell Baker) Assessment and Plan = [id number] LVH diastolic dysfunction due to HTN over time now BP controlled after weight loss gentle diuretic FU in opd (Anand Irvin MD) Darnell Baker Jul 10, 2017 07:39 Anand Irvin MD Jul 10, 2017 16:39
[2017-07-10] MEDS: FUROSEMIDE 20 MG TAB PO SCH (09:00)
[2017-07-10] MEDS: TAMSULOSIN HCL 0.4 MG CAP PO SCH (12:10)
[2017-07-10] MEDS: PANTOPRAZOLE SOD 20 MG DELAYED RELEASE TAB PO SCH (12:10)
[2017-07-10 12:17] LABS: BICARBONATE 31.2 MEQ/L (21.0-32.0); CALCIUM 8.4 MG/DL (8.5-10.1); CREATININE 1.52 MG/DL (0.60-1.30)
--- NOTE | 2017-07-10 14:36 | HHI.PR ---
Subjective Remarks less SOB from admission. Objective Vitals Vital Signs Date Time Temp Pulse Resp B/P (MAP) Pulse Ox O2 Delivery O2 Flow Rate FiO2 07/10/17 12:02 98.0 102 17 98/54 (69) 99 07/10/17 08:22 98.1 91 16 93/51 (65) 95 07/10/17 07:41 96 07/10/17 04:08 94 07/10/17 04:00 98.2 93 16 91/50 (64) 96 07/10/17 04:00 Room Air 07/10/17 00:00 Room Air 07/10/17 00:00 98.0 103 16 101/54 (70) 95 07/09/17 23:59 103 07/09/17 22:57 97 07/09/17 22:57 97 07/09/17 20:05 101 07/09/17 20:00 98.4 105 16 96/53 (67) 97 07/09/17 19:45 Room Air 07/09/17 16:00 98.5 96 20 116/58 (77) 98 Result Diagram: 07/06/17 0828 07/10/17 1143 Imaging Last Impressions Thoracentesis Ultrasound 07/08/17 0600 Signed Impressions: Service Date/Time: Saturday, July 08, 2017 13:34 - CONCLUSION: Uncomplicated ultrasound guided thoracentesis. Antoni Marrero MD Chest X-Ray 07/08/17 0000 Signed Impressions: Service Date/Time: Saturday, July 08, 2017 14:34 - CONCLUSION: 1. Marked improvement in the previously seen right-sided effusion. Minimal fluid persists in the costophrenic angle. No pneumothorax post thoracentesis. 2. Mild bibasilar atelectatic changes. 3. Compensated cardiomegaly. Theo Lazo MD Chest CT 07/06/17 0000 Signed Impressions: Service Date/Time: Friday, July 07, 2017 08:46 - CONCLUSION: Bilateral pleural effusions, larger on the right. This is associated with compressive atelectasis of the right lower lobe. Enlargement of the cardiac silhouette and cephalization of pulmonary vasculature suggest congestive heart failure as the source of the pleural effusions.. Ely Davis MD Objective Remarks GENERAL: This is a well-nourished, well-developed patient, in no apparent distress. CARDIOVASCULAR: Regular rate and rhythm without murmurs, gallops, or rubs. RESPIRATORY: Clear to auscultation. Breath sounds equal bilaterally. No wheezes , rales, or rhonchi. GASTROINTESTINAL: Abdomen soft, non-tender, nondistended. Normal active bowel sounds MUSCULOSKELETAL: Extremities without clubbing, cyanosis, or edema. NEURO: Alert & Oriented x4 to person, place, time, situation. Moves all ext x4 A/P Problem List: (1) Fluid overload ICD Codes: E87.70 - Fluid overload, unspecified Status: Acute Plan: - 76 yo presents with sob, leg edema, fatigue. has been on 2 courses of abx for apparent pna. - CT chest 3 days prior to admission showed right lung base consolidation with mod effusion and small effusion on left. - vasquez 01/10 --> no ischemia - echocardiogram (07/08) - EF 55-60% - severe LVH - echocardiogram from (07/08) reviewed with Cardiology, Dr. Irvin. Echocardiogram c/w diastolic dysfuntion, grade 3 - Pt underwent right thoracentesis (07/08) with removal of 800ml fluid, studies sent to the lab - pleural fluid analysis by light chain criteria --> transudative effusion - cytology --> pending - speech eval noted confirmed concerns of aspiration. mod diet - antibiotics stopped - cont diuretic if BP will allow and monitor renal function. dvt prophylaxis. - anticipate d/c to SNF in 1-2 days (2) Pneumonia ICD Codes: J18.9 - Pneumonia, unspecified organism Status: Acute Plan: - pneumonia seems less likely - no fever, no leukocytosis - antibiotics stopped - observe (3) Dysphagia ICD Codes: R13.10 - Dysphagia, unspecified Status: Chronic Plan: - see above (4) Lung cancer ICD Codes: C34.90 - Malignant neoplasm of unspecified part of unspecified bronchus or lung Status: Resolved Plan: - previous h/o lung ca - s/p left lung resection (5) HTN (hypertension) ICD Codes: I10 - Essential (primary) hypertension Status: Chronic Plan: - pt trending hypotensive - outpt BP meds are on hold - observe (6) CKD (chronic kidney disease) stage 4, GFR 15-29 ml/min ICD Codes: N18.4 - Chronic kidney disease, stage 4 (severe) Status: Chronic Problem Qualifiers (1) Pneumonia: Qualified Codes: J18.1 - Lobar pneumonia, unspecified organism (2) Dysphagia: Qualified Codes: R13.10 - Dysphagia, unspecified (3) Lung cancer: Qualified Codes: C34.90 - Malignant neoplasm of unspecified part of unspecified bronchus or lung (4) HTN (hypertension): Qualified Codes: I10 - Essential (primary) hypertension Benjamin Bond DO Jul 10, 2017 14:36
[2017-07-10] MEDS: ENOXAPARIN SODIUM 40 MG/0.4 ML SYRINGE SQ SCH (23:43)
[2017-07-10] MEDS: TEMAZEPAM 7.5 MG CAP PO PRN (23:43)
[2017-07-11] VITALS (8 sets, daily range): BP systolic 105–119; BP diastolic 51–61; PULSE 4–100; RESP 18–20; TEMP 97.6–98; O2SAT 96–98
[2017-07-11] MEDS: RESP: IPRATROPIUM 0.5 MG/2.5 ML NEB NEB SCH ×2 (07:32→15:15)
[2017-07-11] MEDS: PANTOPRAZOLE SOD 20 MG DELAYED RELEASE TAB PO SCH (09:32)
[2017-07-11] MEDS: TAMSULOSIN HCL 0.4 MG CAP PO SCH (09:32)
[2017-07-11] MEDS: FUROSEMIDE 20 MG TAB PO SCH (09:32)
[2017-07-11] MEDS ORDERED: TAMS5CAP PO (11:24)
--- NOTE | 2017-07-11 11:29 | HHI.DS ---
Discharge Summary Admission Date Jul 05, 2017 at 23:14 Discharge Date: Jul 11, 2017 Admitting Diagnosis possible pna (1) Fluid overload Diagnosis: Principal ICD Codes: E87.70 - Fluid overload, unspecified Status: Acute (2) Dysphagia Diagnosis: Principal ICD Codes: R13.10 - Dysphagia, unspecified Status: Chronic (3) Lung cancer Diagnosis: Secondary ICD Codes: C34.90 - Malignant neoplasm of unspecified part of unspecified bronchus or lung Status: Resolved (4) HTN (hypertension) Diagnosis: Secondary ICD Codes: I10 - Essential (primary) hypertension Status: Chronic (5) CKD (chronic kidney disease) stage 4, GFR 15-29 ml/min Diagnosis: Secondary ICD Codes: N18.4 - Chronic kidney disease, stage 4 (severe) Status: Chronic (6) Diastolic CHF Diagnosis: Principal ICD Codes: I50.30 - Unspecified diastolic (congestive) heart failure Status: Acute Consultants Dr. Irvin, Cardiology Dr. Jackson, IR Procedures US guided thoracentesis 800 ml removed 07/08/[address] Fontenot Brief History Pt is 76 yo with hx lung ca sp left lung resection, copd, chronic dysphagia. Pt says he has had swallowing problems for about 3 yrs and was evaluated in [place], follows with ST outpt, and even tried a TENS unit for a yr. Uses modified diet. has been fatigued and more sob. recently he reports to courses of abx to include most recently completing doxycycline this week for pneumonia. Pt has had more edema of legs and seen by cardiology in May who felt the heart was compensated and pt had echo and vasquez in 01/10. They suggested pulmonary eval. Seen by pcp. CT chest done 07/03 and showed right lung consolidation and mod right pleural effusion and small left effusion. At [facility] for his dysphagia, pt had esophageal manometry showed incomplete lower esophageal sphincter relaxation and occasional areas of poor peristalsis. mod barium swallow showed moderate oropharyngeal dysphagia with penetration but no aspiration. These reports were in April and he had never had any evidence of aspiration at that time. Now pt seems to have some coughing here with eating his breakfast. Pt was given iv lasix in ED last night for edema which improved the swelling. lovell was placed. given iv abx as well. CBC/BMP: 07/10/17 1143 Significant Findings Laboratory Tests Test 07/08/17 14:20 07/09/17 03:20 07/09/17 21:37 07/10/17 11:43 Pleural Fluid RBC 105 /MM3 (0-0) Urine Occult Blood MOD (NEG) Urine RBC 31 /hpf (0-3) Urine Mucus FEW /lpf (OCC) Lactate Dehydrogenase 291 U/L (87-241) B-Type Natriuretic Peptide 1032 PG/ML (0-100) Blood Urea Nitrogen 34 MG/DL (7-18) Creatinine 1.52 MG/DL (0.60-1.30) Calcium Level 8.4 MG/DL (8.5-10.1) Estimat Glomerular Filtration Rate 45 ML/MIN (>89) PE at Discharge GENERAL: This is a well-nourished, well-developed patient, in no apparent distress. CARDIOVASCULAR: Regular rate and rhythm without murmurs, gallops, or rubs. RESPIRATORY: Clear to auscultation. Breath sounds equal bilaterally. No wheezes , rales, or rhonchi. GASTROINTESTINAL: Abdomen soft, non-tender, nondistended. Normal active bowel sounds MUSCULOSKELETAL: Extremities without clubbing, cyanosis, or edema. NEURO: Alert & Oriented x4 to person, place, time, situation. Moves all ext x4 Hospital Course acute on chronic Diastolic CHF with Fluid overload - 76 yo presents with sob, leg edema, fatigue. has been on 2 courses of abx for apparent pna. - CT chest 3 days prior to admission showed right lung base consolidation with mod effusion and small effusion on left. - vasquez 01/10 --> no ischemia - echocardiogram (07/08) - EF 55-60% - severe LVH - echocardiogram from (07/08) reviewed with Cardiology, Dr. Irvin. Echocardiogram c/w diastolic dysfuntion, grade 3 - Pt underwent right thoracentesis (07/08) with removal of 800ml fluid, studies sent to the lab - pleural fluid analysis by light chain criteria --> transudative effusion - cytology --> pending - speech eval noted confirmed concerns of aspiration. mod diet - antibiotics stopped - cont diuretic if BP will allow and monitor renal function. dvt prophylaxis. Pneumonia - pneumonia seems less likely - no fever, no leukocytosis - antibiotics stopped - observe Dysphagia - see above Lung cancer - previous h/o lung ca - s/p left lung resection HTN (hypertension) - pt trending hypotensive - outpt BP meds are on hold - observe CKD (chronic kidney disease) stage 4, GFR 15-29 ml/min Chronic Pt Condition on Discharge: Stable Discharge Disposition: Disch w/ Home Health Serv Discharge Instructions DIET: Follow Instructions for: Heart Healthy Diet Speech Therapy-Diet Recommends: Mechanical Soft, Pitman Thickened Liquids Activities you can perform: Regular-No Restrictions Follow up Referrals: Cardiology - [address] Irvin PCP Follow-up - [address] Garcia Urology - 2 Weeks with Fabián Mccoy DO New Medications: Tamsulosin (Flomax) 0.4 Mg Cap 0.4 MG PO DAILY for Prostate enlarged, #30 CAP 0 Refills Continued Medications: Acetaminophen (Tylenol) 325 Mg Tab 325 MG PO Q4H PRN for pain, TAB 0 Refills Cyanocobalamin (B-12) 1,000 Mcg Subl 1000 MCG SL DAILY for Nutritional Supplement, TAB.SL 0 Refills Furosemide (Lasix) 20 Mg Tab 20 MG PO DAILY, #30 TAB 0 Refills Ipratropium HFA 12.9 GM Inh (Atrovent HFA 12.9 GM Inh) 17 Mcg/Act Aer 2 PUFF INH TID, #1 INHALER 0 Refills Omeprazole (Omeprazole) 20 Mg Tab 20 MG PO DAILY, #30 TAB 0 Refills Psyllium (Metamucil) 520 Mg Cap 1 CAP PO HS Discontinued Medications: Diltiazem CD 24 HR (Diltiazem CD 24 HR) 240 Mg Caper 180 MG PO DAILY, #30 CAP 0 Refills Losartan (Losartan) 50 Mg Tab 50 MG PO DAILY for Blood Pressure Management, #30 TAB 0 Refills Additional Information Patient examined. Assessment and plan formulated with Ewelina Allen PA-C. I agree with the above. Ewelina Allen Jul 11, 2017 11:28 Benjamin Bond DO Jul 15, 2017 01:03
--- NOTE | 2017-07-11 12:11 | HHI.FF ---
Face to Face Verification Diagnosis: (1) Diastolic CHF (2) CKD (chronic kidney disease) stage 4, GFR 15-29 ml/min (3) HTN (hypertension) (4) Fluid overload Physical Therapy Order: Evaluate and Treat, Improve ambulation, Strength and gait training Occupational Therapy Order: Evaluate and Treat Speech Therapy Order: To Improve: Swallowing Home Health Nursing Order: Medical education Signs/symptoms of disease process CHF education Medication education-adverse effect Nursing assessment with vital signs Soil Tester Order: To Evaluate: Living conditions/environment, Support services Order: To Provide: Long range planning I have seen patient Lobito Joseph on 07/11/17. My clinical findings support the need for the requested home health care services because: Deconditioned w/ increased weakness Med compliance is questionable Limited ability to care for self High risk of falls I certify that my clinical findings support that this patient is homebound because: Unsteady gait/balance Ewelina Allen Jul 11, 2017 12:11 Benjamin Bond DO Jul 15, 2017 01:02
== END 2017-07-11 17:53 | disposition home health service (06) | DRG 291 ==
LOC: NEPC 20:14 → NEDA 23:14 → N04A 07-06 00:52
PROVIDERS: ADMIT Hospitalist; ATTEND Hospitalist
PROC: 0W993ZX Drainage of Right Pleural Cavity, Percutaneous Approach, Diagnostic (ICD-10-PCS; principal; 2017-07-08)
DX: I13.0 Hypertensive heart and chronic kidney disease with heart failure and stage 1 through stage 4 chronic kidney disease, or unspecified chronic kidney disease (principal); I50.33 Acute on chronic diastolic (congestive) heart failure; N18.4 Chronic kidney disease, stage 4 (severe); I95.9 Hypotension, unspecified; J90 Pleural effusion, not elsewhere classified; J44.9 Chronic obstructive pulmonary disease, unspecified; R13.12 Dysphagia, oropharyngeal phase; K21.9 Gastro-esophageal reflux disease without esophagitis; Z90.2 Acquired absence of lung [part of]; Z85.118 Personal history of other malignant neoplasm of bronchus and lung; Z87.01 Personal history of pneumonia (recurrent); Z85.820 Personal history of malignant melanoma of skin
CPT/HCPCS: 32555; 71045; 71250; 80048; 80053; 80076; 80202; 81001; 82550; 82552; 82945; 83605; 83615; 83735; 83880; 84155; 84157; 84484; 85025; 85610; 85730; 87040; 87070; 87205; 88112; 89051; 93005; 93306; 94640; 94664; 96374; C1729; J1650; J1940; J3370; J7040; J7614; J7644